=== PATIENT | male | born 1980 | race Caucasian/White ===

== ENCOUNTER 2020-02-08 09:44 | Emergency (ER) | payer OTHER ==
[2020-02-08] MEDS ORDERED: KETOROLAC TROMETHAMINE 60 MG/2 ML VIAL ONE (10:44)
[2020-02-08] MEDS ORDERED: TETANUS/DIPHTHERIA TOXOID [ADULT] 0.5 ML VIAL IM ONE (10:45)
== END 2020-02-08 11:12 | disposition home or self-care (01) ==
LOC: EDH 09:44
DX: S61.452A Open bite of left hand, initial encounter (principal); Z72.0 Tobacco use; W54.0XXA Bitten by dog, initial encounter; Y93.89 Activity, other specified; Y92.89 Other specified places as the place of occurrence of the external cause; Y99.8 Other external cause status
CPT/HCPCS: 73130; 90471; 90714; 96372; 99284; J1885

== ENCOUNTER 2021-09-03 20:34 | Emergency (ER) | payer BC ==
[~2021-09-03] VITALS: Ht 177.8 cm; Wt 104.3 kg
[2021-09-03] MEDS ORDERED: KETOROLAC 15MG/ML VIAL (15MG/ML) IV ONE (21:00)
[2021-09-03] MEDS ORDERED: LACTATED RINGERS 1000ML 1,000 ML IV ONE (21:00)
[2021-09-03 21:07] LABS: BASOPHILS % (AUTO) 0.4 % (0.0-5.0); EOSINOPHILS % (AUTO) 0.8 % (0.0-8.0); HEMATOCRIT 46.3 % (42-54); LYMPHOCYTES % (AUTO) 15.9 % (21.0-51.0); MEAN CORPUSCULAR HEMOGLOBIN 28.1 pg (27.0-33.0); MEAN CORPUSCULAR HGB CONC 32.6 g/dL (32.0-36.0); MEAN CORPUSCULAR VOLUME 86.2 fL (79-99); MONOCYTES % (AUTO) 11.2 % (3.0-13.0); NEUTROPHILS % (AUTO) 70.9 % (40.0-77.0); PLATELET COUNT (AUTO) 286 K/uL (130-400); RED BLOOD CELL COUNT(AUTO) 5.37 MIL/uL (4.50-6.20); RED CELL DISTRIBUTION WIDTH 13.5 % (11.0-15.5); WHITE BLOOD COUNT (AUTO) 15.9 K/uL (4.8-10.8)
[2021-09-03 21:21] LABS: CREATININE 2.4 mg/dL (0.5-1.5); POTASSIUM 3.7 mmol/L (3.5-5.1)
[2021-09-03 21:25] LABS: ALBUMIN 3.7 g/dL (3.5-5.0); BILIRUBIN,TOTAL 0.5 mg/dL (0.2-1.0); TOTAL PROTEIN, SERUM 7.9 g/dL (6.0-8.3)
[2021-09-03 22:48] LABS: APPEARANCE,URINE Clear (CLEAR); BILIRUBIN,URINE Negative (NEGATIVE); COLOR,URINE Yellow (YELLOW); GLUCOSE, URINE (UA) Negative (NEGATIVE); KETONES,URINE Negative (NEGATIVE); LEUKOCYTE ESTERASE ,URINE Negative (NEGATIVE); NITRATE,URINE Negative (NEGATIVE); OCCULT BLOOD,URINE Negative (NEGATIVE); PH,URINE 5.5 (5.0-8.0); PROTEIN,URINE POS 1+ mg/dL (NEGATIVE); UROBILINOGEN,URINE 0.2 mg/dL (0.2-1.0)
[2021-09-03 23:10] LABS: RBC,URINE None Seen /HPF (0-1); WBC,URINE 0-1 /HPF (0-1)
[2021-09-03 23:11] LABS: BACTERIA,URINE None Seen /HPF (None Seen); SQUAMOUS EPITHELIAL CELL,UR Rare /HPF (0-2)
[2021-09-03] MEDS ORDERED: CEPH500B PO (23:19)
[2021-09-03] MEDS ORDERED: NAPR-1023 PO (23:19)
[2021-09-03] MEDS ORDERED: CEFTRIAXONE 1G VIAL IVP ONE (23:30)
[2021-09-03 23:57] VITALS: BP 140/82
== END 2021-09-03 23:58 | disposition home or self-care (01) ==
LOC: EDH 20:34
DX: N20.0 Calculus of kidney (principal); N12 Tubulo-interstitial nephritis, not specified as acute or chronic
CPT/HCPCS: 36415; 74176; 80053; 81001; 83690; 85025; 96361; 96374; 96375; 99284; J0696; J1885; J7120

== ENCOUNTER 2022-02-06 04:39 | Emergency (ER) | payer BC ==
[~2022-02-06] VITALS: Ht 177.8 cm; Wt 102.5 kg
[~2022-02-06 04:39] MED LIST: CEPH500B PO; NAPR-1023 PO
[2022-02-06 05:23] LABS: BASOPHILS % (AUTO) 0.4 % (0.0-5.0); EOSINOPHILS % (AUTO) 2.3 % (0.0-8.0); HEMATOCRIT 42.5 % (42-54); LYMPHOCYTES % (AUTO) 21.2 % (21.0-51.0); MEAN CORPUSCULAR HEMOGLOBIN 29.3 pg (27.0-33.0); MEAN CORPUSCULAR HGB CONC 33.9 g/dL (32.0-36.0); MEAN CORPUSCULAR VOLUME 86.4 fL (79-99); MONOCYTES % (AUTO) 8.5 % (3.0-13.0); NEUTROPHILS % (AUTO) 66.8 % (40.0-77.0); PLATELET COUNT (AUTO) 299 K/uL (130-400); RED BLOOD CELL COUNT(AUTO) 4.92 MIL/uL (4.50-6.20); WHITE BLOOD COUNT (AUTO) 12.3 K/uL (4.8-10.8)
[2022-02-06 05:31] LABS: CREATININE 1.8 mg/dL (0.5-1.5); POTASSIUM 4.2 mmol/L (3.5-5.1)
[2022-02-06 05:36] LABS: ALBUMIN 3.5 g/dL (3.5-5.0); TOTAL PROTEIN, SERUM 7.7 g/dL (6.0-8.3)
[2022-02-06 05:52] LABS: APPEARANCE,URINE CLOUDY (CLEAR); BILIRUBIN,URINE NEGATIVE (NEGATIVE); COLOR,URINE LIGHT-ORANGE (YELLOW); GLUCOSE, URINE (UA) NEGATIVE (NEGATIVE); KETONES,URINE NEGATIVE (NEGATIVE); LEUKOCYTE ESTERASE ,URINE NEGATIVE Leu/uL (NEGATIVE); NITRATE,URINE NEGATIVE (NEGATIVE); OCCULT BLOOD,URINE LARGE (NEGATIVE); PH,URINE 5.5 (5.0-8.0); PROTEIN,URINE 30 mg/dL (NEGATIVE); UROBILINOGEN,URINE 0.2 mg/dL (0.2-1.0)
[2022-02-06 06:01] LABS: MUCUS,URINE RARE LPF (None Seen); RBC,URINE TNTC /HPF (0-1); YEAST,URINE BUDDING MANY /HPF (None Seen)
[2022-02-06] MEDS ORDERED: ONDANSETRON 4MG INJ IVP ONE (07:00)
[2022-02-06] MEDS ORDERED: KETOROLAC 30MG VIAL (30MG/ML) IVP ONE (07:00)
[2022-02-06] MEDS ORDERED: 0.9%NACL 1000ML 1,000 ML IV ONE (07:00)
[2022-02-06] MEDS ORDERED: TAMSULOSIN HCL 0.4 MG CAP.ER.24H PO STA (08:43)
[2022-02-06 08:53] VITALS: BP 142/76
[2022-02-06] MEDS ORDERED: KETO10TA2 PO (09:04)
[2022-02-06] MEDS ORDERED: CEPH500B PO (09:04)
[2022-02-06] MEDS ORDERED: TAMS-1 PO (09:04)
== END 2022-02-06 09:37 | disposition home or self-care (01) ==
LOC: EDH 04:39
DX: N20.1 Calculus of ureter (principal); R11.10 Vomiting, unspecified; I10 Essential (primary) hypertension; Z79.899 Other long term (current) drug therapy; Z87.442 Personal history of urinary calculi
CPT/HCPCS: 99284; 74176; 96374; 96361; 96375; 80053; 85025; 81001; 36415; J7030; J2405; J1885

== ENCOUNTER 2023-04-25 09:46 | Emergency (ER) | payer BC ==
[~2023-04-25] VITALS: Ht 177.8 cm; Wt 99.3 kg
[~2023-04-25 09:46] MED LIST changes: +KETO10TA2 PO; +TAMS-1 PO
[2023-04-25 09:48] VITALS: BP 147/92; PULSE 94; RESP 20
[2023-04-25] MEDS ORDERED: CLIN-141 PO (09:59)
[2023-04-25] MEDS ORDERED: IBUP-2077 PO (09:59)
[2023-04-25] MEDS ORDERED: CEFTRIAXONE 1G VIAL IM ONE (10:00)
[2023-04-25] MEDS ORDERED: HYDROCODONE/ACETAMINOPHEN 5/325 MG TAB PO ONE (10:00)
[2023-04-25] MEDS ORDERED: LIDOCAINE HCL 1% 20 ML VIAL ONE (10:04)
[2023-04-25] MEDS ORDERED: PANT40TA55 PO (10:17)
[2023-04-26] MEDS ORDERED: IBUP-1493 PO (04:28)
[2023-04-26] MEDS ORDERED: LEVO-70 PO (04:28)
== END 2023-04-25 10:26 | disposition home or self-care (01) ==
LOC: EDH 09:46
DX: L02.11 Cutaneous abscess of neck (principal); I10 Essential (primary) hypertension; Z79.899 Other long term (current) drug therapy; Z98.890 Other specified postprocedural states
CPT/HCPCS: 99284; 96372; J0696

== ENCOUNTER 2023-04-26 02:37 | Emergency (ER) | payer BC ==
[~2023-04-26] VITALS: Ht 177.8 cm; Wt 99.3 kg
[~2023-04-26 02:37] MED LIST changes: +CLIN-141 PO; +IBUP-2077 PO; +PANT40TA55 PO
[2023-04-26] MEDS ORDERED: ONDANSETRON ODT 4MG TAB ONE (04:23)
[2023-04-26] MEDS ORDERED: LEVO-70 PO (04:28)
[2023-04-26] MEDS ORDERED: IBUP-1493 PO (04:28)
[2023-04-26] MEDS ORDERED: ONDANSETRON ODT 4MG TAB SL ONE (04:30)
[2023-04-26] MEDS ORDERED: ONDANSETRON 4MG INJ ONE (04:37)
[2023-04-26 05:43] VITALS: BP 123/69; PULSE 89; RESP 18; O2SAT 98
== END 2023-04-26 05:44 | disposition home or self-care (01) ==
LOC: EDH 02:37
DX: L03.221 Cellulitis of neck (principal); I10 Essential (primary) hypertension; Z79.899 Other long term (current) drug therapy; Z98.890 Other specified postprocedural states
CPT/HCPCS: 99283; 10060; J2405

== ENCOUNTER → 2023-04-27 | Emergency (ER) | payer BC ==
[~2023-04-27] VITALS: Ht 177.8 cm; Wt 99.3 kg
[~2023-04-27] MED LIST changes: +IBUP-1493 PO; +LEVO-70 PO; +MORPHINE 4 MG SYG IVP ONE; +ONDANSETRON 4MG INJ IVP ONE; +VANCOMYCIN KIT 1 GM/250 ML IV.KIT IV ONE; +ZOSYN 3.375GM +NS 50ML IV ONE
[2023-04-27 13:05] VITALS: BP 148/81; PULSE 129; RESP 22
[2023-04-27 14:14] LABS: BASOPHILS # (AUTO) 0.04 K/uL (0.00-0.20); BASOPHILS % (AUTO) 0.2 % (0.0-5.0); EOSINOPHILS # (AUTO) 0.18 K/uL (0.00-0.70); EOSINOPHILS % (AUTO) 0.8 % (0.0-8.0); HEMATOCRIT 41.9 % (42-54); IMMATURE GRANULOCYTE ABSOLUTE 0.16 K/uL (0-1); LYMPHOCYTES # (AUTO) 2.2 K/uL (1.0-4.8); LYMPHOCYTES % (AUTO) 10.3 % (21.0-51.0); MEAN CORPUSCULAR HEMOGLOBIN 28.5 pg (27.0-33.0); MEAN CORPUSCULAR HGB CONC 32.5 g/dL (32.0-36.0); MEAN CORPUSCULAR VOLUME 87.7 fL (79-99); MONOCYTES # (AUTO) 2.3 K/uL (0.1-1.0); MONOCYTES % (AUTO) 10.9 % (3.0-13.0); NEUTROPHILS # (AUTO) 16.6 K/uL (1.8-7.7); NEUTROPHILS % (AUTO) 77.1 % (40.0-77.0); PLATELET COUNT (AUTO) 345 K/uL (130-400); RED BLOOD CELL COUNT(AUTO) 4.78 MIL/uL (4.50-6.20); RED CELL DISTRIBUTION WIDTH 12.9 % (11.0-15.5); WHITE BLOOD COUNT (AUTO) 21.5 K/uL (4.8-10.8)
[2023-04-27 14:29] LABS: CREATININE 1.1 mg/dL (0.5-1.5)
[2023-04-27 14:36] LABS: ALBUMIN 3.2 g/dL (3.5-5.0); BILIRUBIN,TOTAL 0.4 mg/dL (0.2-1.0); TOTAL PROTEIN, SERUM 7.9 g/dL (6.0-8.3)
== END ==
LOC: EDH 13:05
DX: L03.221 Cellulitis of neck (principal); L02.11 Cutaneous abscess of neck; I10 Essential (primary) hypertension; Z79.1 Long term (current) use of non-steroidal anti-inflammatories (NSAID); Z79.899 Other long term (current) drug therapy
CPT/HCPCS: 36415; 80053; 83605; 85025